=== PATIENT | male | born 1985 | race African-American/Black ===

== ENCOUNTER 2021-01-23 11:30 | Emergency (ER) | payer MEDICAID, SELFPAY ==
[~2021-01-23] VITALS: Ht 177.8 cm; Wt 68.0 kg
[2021-01-23 11:30] VITALS: BP_SYST 135
[2021-01-23] MEDS: KETOROLAC TROMETHAMINE 30 MG VIAL IVP ONE (12:10)
[2021-01-23 12:13] LABS: BASOPHILS # (AUTO) 0.1 K/uL (0.0-0.2); BASOPHILS % (AUTO) 0.4 % (0.0-2.0); EOSINOPHILS # (AUTO) 0.3 K/uL (0.0-0.4); EOSINOPHILS % (AUTO) 2.5 % (0.0-4.0); HEMATOCRIT 23.5 % (36-54); LYMPHOCYTES # (AUTO) 0.4 K/uL (1.0-5.5); LYMPHOCYTES % (AUTO) 2.9 % (20.5-51.5); MEAN CORPUSCULAR HEMOGLOBIN 24 pg (27-31); MEAN CORPUSCULAR HGB CONC 32 % (32-36); MEAN CORPUSCULAR VOLUME 74 fL (79.0-98.0); MONOCYTES # (AUTO) 1.1 K/uL (0.0-1.0); NEUTROPHILS # (AUTO) 12.1 K/uL (1.8-7.7); NEUTROPHILS % (AUTO) 86.2 % (40.0-70.0); PLATELET COUNT (AUTO) 216 K/uL (130-430); RED BLOOD CELL COUNT(AUTO) 3.16 MIL/uL (4.2-6.2); RED CELL DISTRIBUTION WIDTH 30.3 % (9.0-15.0); WHITE BLOOD COUNT (AUTO) 14.1 K/uL (4.8-10.8)
[2021-01-23 12:30] LABS: HEMOGLOBIN 7.6 g/dL (14.0-18.0)
[2021-01-23 12:36] LABS: CALCIUM 8.5 mg/dL (8.4-11.0); CREATININE 0.9 mg/dL (0.55-1.30); POTASSIUM 3.2 mmol/L (3.5-5.1)
[2021-01-23 12:42] LABS: ALBUMIN 3.7 g/dL (3.4-4.8); TOTAL BILIRUBIN 1.1 mg/dL (0.0-1.0)
[2021-01-23] MEDS: NACL 0.9% 1,000 ML IV ONE (13:58)
[2021-01-23 15:42] VITALS: BP_SYST 135
== END 2021-01-23 13:30 | disposition home or self-care (01) ==
LOC: SED 11:30
DX: R07.89 Other chest pain (principal); E86.0 Dehydration; D57.1 Sickle-cell disease without crisis; Z20.822 Contact with and (suspected) exposure to COVID-19
CPT/HCPCS: 36415; 71045; 80053; 84484; 85025; 85044; 85379; 87426; 93005; 96361; 96374; 99285; J1885; J7030